=== PATIENT | male | born 1970 | race Caucasian/White ===

== ENCOUNTER 2024-04-15 07:07 | Day surgery (SDC) | payer BC ==
[~2024-04-15] VITALS: Ht 172.7 cm; Wt 127.0 kg
[~2024-04-15 07:07] MED LIST: AMOCLA875 PO; HYDACE10B PO; HYDACE5 PO; NS 500 ML IV SCH; OMEP20ER
[2024-04-15 08:12] VITALS: BP 132/78
--- NOTE | 2024-04-15 08:22 | NUR ---
Ambulatory in Day Surgery History, Chart, Medications and Allergies reviewed before start of procedure. Pre-Op teaching done. Pt verbalizes understanding. Patient States Post-Procedure ride home has been arranged.
[2024-04-15] MEDS ORDERED: propofoL 50 ML IV ONE (08:27)
--- NOTE | 2024-04-15 08:33 | NUR ---
04/15/24 0833 Colleen Manning MONITOR INTACT WITH CONTINUOUS PULSE OXIMETRY, CONTINUOUS END TITAL CO2, AND INTERMITTENT BLOOD PRESSURE.
[2024-04-15 08:59] VITALS: BP 109/80
--- NOTE | 2024-04-15 09:13 | NUR ---
Discharge instructions reviewed with patient. Patient verbalizes understanding. Copy given to patient to take home. Patient States Post-Procedure ride home has been arranged. Discharged via wheelchair to private car for ride home.
== END 2024-04-15 09:14 | disposition home or self-care (01) ==
LOC: ORSCMMR 07:07 → ORD 08:30 → ORSCMMR 09:14
PROVIDERS: Internal Medicine Gastroenterology
PROC: 0DJD8ZZ Inspection of Lower Intestinal Tract, Via Natural or Artificial Opening Endoscopic (ICD-10-PCS; principal; 2024-04-15 08:30)
DX: Z12.11 Encounter for screening for malignant neoplasm of colon (principal); K57.30 Diverticulosis of large intestine without perforation or abscess without bleeding; G47.33 Obstructive sleep apnea (adult) (pediatric); E66.01 Morbid (severe) obesity due to excess calories; Z68.41 Body mass index [BMI] 40.0-44.9, adult
CPT/HCPCS: J2704; J7040